=== PATIENT | male | born 1995 | race Caucasian/White ===

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

== ENCOUNTER 2017-12-30 17:29 | Emergency (ER) | payer OTHER ==
[2017-12-30 18:31] LABS: BASO % 0.5 % (0.0-1.0); EOS # 0.1 10^3/uL (0.0-0.50); EOS % 0.7 % (0.0-3.0); HEMATOCRIT 49.5 % (42.0-52.0); HEMOGLOBIN 16.9 g/dl (13.5-17.5); IMMATURE GRANULOCYTE % 0.3 % (0-3.0); LYMPH # 2.3 10^3/uL (1.5-6.5); MEAN CORPUSCULAR HEMOGLOBIN 31.2 pg (27.0-33.0); MEAN CORPUSCULAR HGB CONC 34.1 g/dl (32.0-36.5); MEAN CORPUSCULAR VOLUME 91.5 fl (80.0-96.0); MONO # 0.6 10^3/uL (0.0-0.8); MONO % 7.4 % (0.0-5.0); NEUTROPHILS # 5.6 10^3/uL (1.8-7.7); NEUTROPHILS % 64.1 % (36.0-66.0); PLATELET COUNT, AUTOMATED 341 10^3/uL (150-450); RED BLOOD COUNT 5.41 10^6/uL (4.30-6.10); RED CELL DISTRIBUTION WIDTH 11.8 % (11.5-14.5); WHITE BLOOD COUNT 8.7 10^3/uL (4.0-10.0)
[2017-12-30 19:06] LABS: ALKALINE PHOSPHATASE 87 U/L (45-117); ALT/SGPT 59 U/L (12-78); ANION GAP 11 MEQ/L (8-16); AST/SGOT 16 U/L (7-37); BILIRUBIN,DIRECT 0.2 MG/DL (0.0-0.2); BILIRUBIN,TOTAL 0.6 MG/DL (0.2-1.0); BLOOD UREA NITROGEN 15 MG/DL (7-18); CALCIUM LEVEL 9.7 MG/DL (8.5-10.1); CARBON DIOXIDE LEVEL 28 MEQ/L (21-32); CHLORIDE LEVEL 103 MEQ/L (98-107); CPK CREATINE PHOSPHOKINASE 154 U/L (39-308); CREATININE FOR GFR 0.99 MG/DL (0.70-1.30); GLUCOSE, FASTING 87 MG/DL (70-100); MB/CK RELATIVE INDEX 0.78 (< OR =4); POTASSIUM SERUM 4.3 MEQ/L (3.5-5.1); SODIUM LEVEL 142 MEQ/L (136-145); THYROID STIMULATING HORMONE 0.499 uIU/ML (0.463-3.98); TROPONIN I < 0.02 NG/ML (< 0.10)
[2017-12-30 19:19] LABS: D-DIMER QUANT < 270.0 ng/ml (<500)
== END 2017-12-30 20:00 | disposition home or self-care (01) ==
LOC: M ED 17:29
DX: R07.89 Other chest pain (principal); G89.29 Other chronic pain; M25.561 Pain in right knee; Z72.0 Tobacco use
CPT/HCPCS: 71046

== ENCOUNTER 2018-02-11 15:37 | Emergency (ER) | payer OTHER ==
[2018-02-11] MEDS: MAGIC MOUTHWASH SUSPENSION BTL SS (16:22)
[2018-02-11 16:28] LABS: CONTROL LINE MONO INT CTR LINE PRESENT; MONO SCRN NEGATIVE (NEGATIVE)
[2018-02-11] MEDS: dexameTHASONE 4 MG/ML 1ML VIAL (J1100) IM (16:44)
[2018-02-11] MEDS: AMOXICILLIN 500 MG CAP PO (17:00)
== END 2018-02-11 17:02 | disposition home or self-care (01) ==
LOC: M ED 15:37
DX: J03.90 Acute tonsillitis, unspecified (principal)
CPT/HCPCS: J1100

== ENCOUNTER 2018-11-04 10:26 | Emergency (ER) | payer OTHER ==
[~2018-11-04] VITALS: Ht 170.2 cm; Wt 75.3 kg
[~2018-11-04 10:26] MED LIST: AMOX500C PO; MAGICMW MT; MEDR4PAK PO; MELO7.5T7 PO; PRIL20CA9 PO
[2018-11-04] MEDS ORDERED: IBUPROFEN 600 MG TAB PO ONE (13:15)
--- NOTE | 2018-11-04 13:39 | REP ---
Head CT without contrast: History: Trauma. Dizziness and headache. Comparison study: No comparison study. CT findings: Bone window settings demonstrate an intact bony calvarium. There is no evidence of skull fracture or incidental bony calvarial lesion. The visualized paranasal sinuses appear clear. No intraorbital abnormality is seen. On soft tissue window setting images; the lateral, third, and fourth ventricles are normal in size and position. Greer-white differentiation pattern is normal above and below the tentorium. There are is no evidence of intracranial hemorrhage. No mass, edema, infarction, or midline shift is seen. No extra-axial fluid collection is appreciated. Impression: Negative noncontrast head CT. Electronically Signed by Joel Rausch MD 11/04/2018 01:38 P
[2018-11-04 14:10] VITALS: BP 148/85
[2019-02-21] MEDS ORDERED: DOXY-350 PO (07:39)
== END 2018-11-04 15:12 | disposition home or self-care (01) ==
LOC: M ED 10:26
DX: S06.0X0A Concussion without loss of consciousness, initial encounter (principal); W50.0XXA Accidental hit or strike by another person, initial encounter; Y92.138 Other place on military base as the place of occurrence of the external cause; Z77.098 Contact with and (suspected) exposure to other hazardous, chiefly nonmedicinal, chemicals; F17.220 Nicotine dependence, chewing tobacco, uncomplicated

== ENCOUNTER 2019-02-16 20:02 | Emergency (ER) | payer OTHER ==
[~2019-02-16] VITALS: Ht 170.2 cm; Wt 74.1 kg
[2019-02-16 20:03] VITALS: BP 172/92
[2019-02-16] MEDS ORDERED: BACTRIM 160MG/800MG DS TAB PO ONE (21:00)
[2019-02-16] MEDS ORDERED: IBUPROFEN 800 MG TAB PO ONE (21:00)
[2019-02-16] MEDS ORDERED: LIDOCAINE 1% MDV 20ML VIAL SC ONE (21:00)
[2019-02-16] MEDS ORDERED: CLIN150C14 PO (21:20)
[2019-02-16] MEDS ORDERED: IBUP80TA PO (21:22)
[2019-02-16] MEDS ORDERED: CLINDAMYCIN 150 MG CAP PO ONE (21:30)
[2019-02-21] MEDS ORDERED: DOXY-350 PO (07:39)
== END 2019-02-16 21:38 | disposition home or self-care (01) ==
LOC: M ED 20:02
DX: H00.031 Abscess of right upper eyelid (principal); F17.200 Nicotine dependence, unspecified, uncomplicated

== ENCOUNTER 2019-03-02 23:31 | Emergency (ER) | payer OTHER ==
[~2019-03-02] VITALS: Ht 172.7 cm; Wt 75.0 kg
[~2019-03-02 23:31] MED LIST changes: +CLIN150C14 PO; +DOXY-350 PO; +IBUP80TA PO
[2019-03-02 23:32] VITALS: BP 134/84
[2019-03-03] MEDS ORDERED: METAL LOCK LOOP XX ONE (01:58)
== END 2019-03-03 03:06 | disposition left against medical advice (07) ==
LOC: M ED 23:31
DX: Z53.21 Procedure and treatment not carried out due to patient leaving prior to being seen by health care provider (principal)